=== PATIENT | male | born 1975 | race Caucasian/White ===

== ENCOUNTER 2020-01-22 18:13 | Emergency (ER) | payer MEDICAID ==
[~2020-01-22] VITALS: Ht 188 cm; Wt 77.1 kg
--- NOTE | 2020-01-22 19:12 | Emergency Room Report ---
History of Present Illness General Chief Complaint: Wound Recheck/Suture Removal Source: Patient Present Illness HPI 44-year-old male presents to the emergency department complaining of having maninder in his scalp x3 weeks. Patient is status post scalp laceration closure 3 weeks ago. He denies bleeding he denies pain, erythema or discharge. Patient reports he is up-to-date with his vaccinations. He denies any other symptoms at this time. 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 COVID-19 Screening: Negative COVID-19 COVID-19 Testing Source: unk Patient History Past Medical History: see triage record Past Surgical History: none Pertinent Family History: none Reviewed Nursing Documentation: PMH: Agreed; PSxH: Agreed Nursing Documentation-PMH Past Medical History: No Stated History Review of Systems All Other Systems: negative except mentioned in HPI Physical Exam Vital Signs Date Time Temp Pulse Resp B/P (MAP) Pulse Ox O2 Delivery O2 Flow Rate FiO2 01/22/20 18:57 98.1 76 20 124/81 (95) 100 Room Air Sp02 EP Interpretation: reviewed, normal General Appearance: no apparent distress, alert, GCS 15, non-toxic Head: normocephalic, atraumatic, other - healed laceration of the left side of the scalp-no evidence of infection Eyes: bilateral eye normal inspection, bilateral eye PERRL ENT: hearing grossly normal, normal voice Neck: full range of motion Respiratory: lungs clear, normal breath sounds, speaking full sentences Cardiovascular #1: regular rate, rhythm Musculoskeletal: back normal, normal range of motion, gait/station normal, non- tender Neurologic: alert, motor strength/tone normal, oriented x3, sensory intact, responsive, speech normal Psychiatric: judgement/insight normal Skin: wd healing/no infection noted - healed laceration of the left side of the scalp-no evidence of infection Medical Decision Making PA Attestation Dr. Tavera is my supervising Physician whom patient management has been discussed with. Diagnostic Impression: Primary Impression: Encounter for removal of sutures ER Course 44-year-old male presents to the emergency department complaining of having maninder in his scalp x3 weeks. Patient is status post scalp laceration closure 3 weeks ago. He denies bleeding he denies pain, erythema or discharge. Patient reports he is up-to-date with his vaccinations. He denies any other symptoms at this time. Ddx considered but are not limited to laceration, tendon injury, cellulitis,dehiscence. Vital signs: are WNL, pt. is afebrile H&PE are most consistent with: healed laceration of the left side of the scalp- no evidence of infection ORDERS: none required at this time, the diagnosis is clinical ED INTERVENTIONS: - 6 Sutures removed. DISCHARGE: At this time pt. is stable for d/c to home. Will provide printed patient care instructions, and any necessary prescriptions. Care plan and follow up instructions have been discussed with the patient prior to discharge. Last Vital Signs Date Time Temp Pulse Resp B/P (MAP) Pulse Ox O2 Delivery O2 Flow Rate FiO2 01/22/20 18:57 98.1 76 20 124/81 (95) 100 Room Air Status: improved Disposition: HOME, SELF-CARE Condition: Stable Referrals: Yeni Higgins [facility] + [facility] Patient Instructions: Wound Closure Removal Additional Instructions: Follow up with a Primary Care Provider in 3-5 days, even if your symptoms have resolved. --Please review list of primary care clinics, if you do not already have a primary care provider Return sooner to ED if new symptoms occur, or current symptoms become worse. - Please note that this Emergency Department Report was dictated using [employer] technology software, occasionally this can lead to erroneous entry secondary to interpretation by the dictation equipment. Paula Lockhart Jan 22, 2020 19:12
[2020-01-22 19:20] VITALS: BP 124/81
--- NOTE | 2020-01-22 19:20 | NUR ---
ED Nurse Note: Recieved pt on chair here for suture removal of sutures from left scalp area, no s/s of infection or any problems noted, denies pain or any other injuries or complaints.
[2020-01-22 19:35] VITALS: BP 124/81
--- NOTE | 2020-01-22 19:35 | NUR ---
ER DISCHARGE NOTE: Patient is cleared to be discharged per ERMD, pt is aox4, on room air, with stable vital signs. pt was given dc and prescription instructions, pt was able to verbalize understanding, pt id band and iv site removed without complications. pt is able to ambulate with steady gait. pt took all belongings.
== END 2020-01-22 19:35 | disposition home or self-care (01) ==
LOC: EMR 19:11
DX: Z48.02 Encounter for removal of sutures (principal); S01.01XD Laceration without foreign body of scalp, subsequent encounter; X58.XXXD Exposure to other specified factors, subsequent encounter; Z91.011 Allergy to milk products; Z91.018 Allergy to other foods; Z88.1 Allergy status to other antibiotic agents
CPT/HCPCS: 99281